=== PATIENT | female | born 1975 | race African-American/Black ===

== ENCOUNTER 2018-06-22 10:20 | Inpatient (IN) ==
[2018-06-22] MEDS ORDERED: PHENOBARBITAL IV PRN (18:03)
[2018-06-22] MEDS ORDERED: LIBRIUM PO PRN (18:03)
[2018-06-22] MEDS ORDERED: SINEMET 25/100 PO PRN (18:03)
[2018-06-22] MEDS ORDERED: MOTRIN PO PRN (18:03)
[2018-06-22] MEDS ORDERED: BENTYL PO PRN (18:03)
[2018-06-22] MEDS ORDERED: ZOFRAN IV PRN (18:03)
[2018-06-22] MEDS ORDERED: DESYREL PO PRN (18:03)
[2018-06-22] MEDS ORDERED: IMODIUM PO PRN (18:03)
[2018-06-22] MEDS ORDERED: D5W 1,000 ML IV PRN (18:03)
[2018-06-22] MEDS ORDERED: TUBERSOL ID ONE (18:03)
[2018-06-22] MEDS ORDERED: SENOKOT PO PRN (18:03)
[2018-06-22] MEDS ORDERED: DULCOLAX PR PRN (18:03)
[2018-06-22] MEDS ORDERED: MAALOX PLUS LIQUID PO PRN (18:03)
[2018-06-22] MEDS ORDERED: ZOFRAN ODT PO PRN (18:03)
[2018-06-22] MEDS ORDERED: TYLENOL PO PRN (18:03)
[2018-06-22] MEDS ORDERED: ZANAFLEX PO PRN (18:05)
[2018-06-22 18:32] LABS: URINE SOURCE VOIDED
[2018-06-22] MEDS: SUBOXONE 2 MG/0.5 MG FILM SL SCH (18:38)
[2018-06-22 18:50] LABS: UR AMPHETAMINES QUAL NONE DETECTED (NONE DETECT); UR BARBITUATES QUAL NONE DETECTED (NONE DETECT); UR BENZODIAZEPIN QUAL NONE DETECTED (NONE DETECT); UR CANNABINOIDS QUAL PRESUMPTIVE POSITIVE (NONE DETECT); UR COCAINE QUAL PRESUMPTIVE POSITIVE (NONE DETECT); UR METHADONE QUAL NONE DETECTED (NONE DETECT); UR METHAMPHETAMINE QUAL NONE DETECTED (NONE DETECT); UR OPIATES QUAL PRESUMPTIVE POSITIVE (NONE DETECT); UR OXYCODONE QUAL NONE DETECTED (NONE DETECT); UR PCP QUAL NONE DETECTED (NONE DETECT); UR PROPOXYPHENE QUAL NONE DETECTED (NONE DETECT); UR TCA QUAL NONE DETECTED (NONE DETECT)
[2018-06-22 18:53] LABS: BILIRUBIN URINE NEGATIVE (NEGATIVE); BLOOD URINE NEGATIVE (NEGATIVE); CLARITY CLEAR (CLEAR); COLOR YELLOW; GLUCOSE URINE NEGATIVE (NEGATIVE); KETONE URINE NEGATIVE (NEGATIVE); LEUKOCYTES URINE NEGATIVE (NEGATIVE); NITRITE URINE NEGATIVE (NEGATIVE); PROTEIN URINE NEGATIVE (NEGATIVE); UROBILINOGEN URINE NORMAL
[2018-06-22 19:06] LABS: HEMATOCRIT 34.8 % (37.0-47.0); MCH 29.6 PG (27-31); MCHC 31.6 g/dL (33-37); MCV 93.5 FL (81-99); MPV 10.5 FL (7.4-10.4); RBC 3.72 XMIL (4.2-5.4); RDW 15.8 % (11.5-14.5); WBC 7.01 X1000 (4.8-10.8)
[2018-06-22 19:28] LABS: AGAP 12; ALBUMIN 3.4 g/dL (3.5-5.0); ALKALINE PHOSPHATASE 77 U/L (32-104); BUN 18 mg/dL (8-22); CALCIUM 8.8 mg/dL (8.8-10.2); CHLORIDE 104 mmol/L (98-107); COSMO 281; CREATININE 0.9 mg/dL (0.5-0.9); ESTIMATED GFR > 60; GLUCOSE 94 mg/dL (70-104); GOT 30 U/L (10-30); GPT 33 U/L (10-36); POTASSIUM 4.1 mmol/L (3.5-5.1); SODIUM 140 mmol/L (136-145); TCO2 24 mmol/L (25-35); TOTAL BILIRUBIN < 0.15 mg/dL (0.20-1.00); TOTAL PROTEIN 6.4 g/dL (6.3-8.3)
[2018-06-22 19:36] LABS: AMYLASE 51 U/L (20-200); LIPASE 28 U/L (13-60)
[2018-06-22 19:39] LABS: INR 0.96; PROTIME 13.3 Seconds (11.0-16.0)
[2018-06-22] MEDS: NICODERM PATCH TD PRN (19:39)
[2018-06-22] MEDS: PEPCID PO SCH (21:04)
[2018-06-22] MEDS: LOPRESSOR PO SCH (21:49)
[2018-06-23] MEDS: SEROQUEL PO PRN ×2 (01:14→21:59)
[2018-06-23] MEDS: PROTONIX PO SCH (06:21)
[2018-06-23] MEDS: SUBOXONE 2 MG/0.5 MG FILM SL SCH ×3 (06:21→19:08)
[2018-06-23] MEDS ORDERED: PRINZIDE 20/12.5MG PO SCH (09:00)
[2018-06-23] MEDS: ASPIRIN PO SCH (12:15)
[2018-06-23] MEDS: FOLIC ACID PO SCH (12:16)
[2018-06-23] MEDS: HYDROCHLOROTHIAZIDE PO SCH (12:16)
[2018-06-23] MEDS: PEPCID PO SCH ×2 (12:19→21:54)
[2018-06-23] MEDS: PRINIVIL PO SCH (12:19)
[2018-06-23] MEDS: SINGULAIR PO SCH (12:19)
[2018-06-23] MEDS: THERA M PLUS PO SCH (12:35)
[2018-06-23] MEDS: BUSPAR PO SCH ×4 (12:35→17:11)
[2018-06-23] MEDS: VITAMIN B-1 PO SCH (12:35)
[2018-06-23] MEDS: LEXAPRO PO SCH (12:36)
[2018-06-23] MEDS: LOPRESSOR PO SCH (21:54)
[2018-06-23] MEDS: ATARAX PO PRN (22:00)
[2018-06-23] MEDS: ROBAXIN PO PRN (22:00)
[2018-06-23] MEDS: NICODERM PATCH TD PRN (22:00)
[2018-06-24] MEDS: PROTONIX PO SCH (06:03)
[2018-06-24] MEDS: SUBOXONE 2 MG/0.5 MG FILM SL SCH (06:07)
[2018-06-24] MEDS: BUSPAR PO SCH ×4 (10:00→19:04)
[2018-06-24] MEDS: THERA M PLUS PO SCH (12:01)
[2018-06-24] MEDS: FOLIC ACID PO SCH (12:02)
[2018-06-24] MEDS ORDERED: NICOTINE GUM BUCCAL PRN (12:15)
[2018-06-24] MEDS: NICODERM PATCH TD PRN (12:29)
[2018-06-24] MEDS: ROBAXIN PO PRN ×2 (12:29→20:24)
[2018-06-24] MEDS: HYDROCHLOROTHIAZIDE PO SCH (18:26)
[2018-06-24] MEDS: ASPIRIN PO SCH (18:26)
[2018-06-24] MEDS: LEXAPRO PO SCH (18:26)
[2018-06-24] MEDS: VITAMIN B-1 PO SCH (18:26)
[2018-06-24] MEDS: SINGULAIR PO SCH (18:27)
[2018-06-24] MEDS: PEPCID PO SCH ×2 (18:27→20:25)
[2018-06-24] MEDS: PRINIVIL PO SCH (18:27)
[2018-06-24] MEDS: SUBOXONE 8 MG/2 MG FILM SL SCH (19:04)
[2018-06-24] MEDS: LOPRESSOR PO SCH (20:25)
[2018-06-25] MEDS: SEROQUEL PO PRN
[2018-06-25] MEDS: ATARAX PO PRN
--- NOTE | 2018-06-25 01:11 | PROGRESS NOTE ---
DATE: 06/23/2018 SUBJECTIVE: Patient seen and examined by myself on the . Currently she states that she is feeling terrible, did not sleep last night. Still having muscle aches. She does not think she is going to be able to eat this morning. PHYSICAL EXAMINATION: Vital Signs: Reviewed. Temperature 97.3 degrees, pulse 60, respiratory 20, BP 120/67. General: Patient is in no current respiratory distress. She is pleasant to talk with. HEENT: Normocephalic. Neck: Supple. CARDIOVASCULAR: Regular rate. No murmurs. Chest: Clear and nonlabored. Abdomen: Soft. Extremities: Moves all extremities. Neurologic: No changes. ASSESSMENT: 1. Nausea, vomiting. 2. Abdominal pain. 3. Myalgias. 4. Paresthesias. 5. Paroxysmal sweating. 6. Opiate abuse, withdrawal and stabilization. 7. History of breast cancer causing chronic pain. PLAN: We will continue patient in the hospital. Continue Suboxone 08/24. Continue counseling. We will increase if needed. Hopefully home within the next day or two. cc: Duke Nuñez MD
--- NOTE | 2018-06-25 01:27 | PROGRESS NOTE ---
DATE: 06/24/2018 SUBJECTIVE: Patient is in no distress. Still states that she does not feel well. Still having lots of muscle aches and paresthesias. Tremors, anxiety, agitation have improved. Irritability has improved. PHYSICAL EXAMINATION: Vital Signs: Reviewed. She is afebrile. Temperature 97.7 degrees, pulse 74, respiratory 20, BP 116/84. General: Patient is awake, currently in no distress. HEENT: Normocephalic, atraumatic. NACHO. Neck: Supple. No JVD. CARDIOVASCULAR: Regular rate. Chest: Clear. Abdomen: Soft. Extremities: Moves all extremities. Neurologic: No changes. ASSESSMENT: 1. Nausea and vomiting. 2. Abdominal pain. 3. Myalgias. 4. Paresthesias. 5. Paroxysmal sweating. 6. Chronic pain. 7. Opiate abuse and withdrawal. PLAN: We will continue patient in the hospital. We will increase Suboxone to 8/2. If she tolerates, hopefully she can discharge home tomorrow. We will continue counseling. Further orders as needed. cc: Duke Nuñez MD
[2018-06-25] MEDS: SUBOXONE 8 MG/2 MG FILM SL SCH (05:22)
[2018-06-25] MEDS ORDERED: PNEUMOVAX 23 IM ONE (06:06)
[2018-06-25] MEDS: PROTONIX PO SCH (06:25)
[2018-06-25] MEDS ORDERED: SEPTRA DS PO SCH (09:00)
--- NOTE | 2018-06-25 09:49 | Diag Imaging Result Doc PS360 ---
CHEST-2 VIEWS - 06/25/2018 INDICATION: hypoxia COMPARISON: None FINDINGS: The lungs are normally expanded and clear. Heart size and mediastinal contours are normal. No pneumothorax or pleural effusion. There is a calcified granuloma in the right midlung. IMPRESSION: Negative exam. Electronically signed by Tyler Agarwal 06/25/2018 9:47 AM
[2018-06-25] MEDS: BUSPAR PO SCH (10:02)
[2018-06-25] MEDS: VITAMIN B-1 PO SCH (10:03)
[2018-06-25] MEDS: LEXAPRO PO SCH (10:03)
[2018-06-25] MEDS: THERA M PLUS PO SCH (10:03)
[2018-06-25] MEDS: PRINIVIL PO SCH (10:03)
[2018-06-25] MEDS: FOLIC ACID PO SCH (10:03)
[2018-06-25] MEDS: ASPIRIN PO SCH (10:03)
[2018-06-25] MEDS: HYDROCHLOROTHIAZIDE PO SCH (10:03)
[2018-06-25] MEDS: SINGULAIR PO SCH (10:04)
[2018-06-25 12:08] VITALS: BP 125/88
--- NOTE | 2018-06-26 16:08 | HISTORY AND PHYSICAL ---
CHIEF COMPLAINT: Nausea, vomiting. HISTORY OF PRESENT ILLNESS: The patient is a 43-year-old female who presented to [facility] secondary to nausea, vomiting, abdominal pain, myalgias, chronic pain and chronic opiate abuse. She is a very pleasant 43-year-old female who has a known history of breast cancer which I believe is where she started with taking pain medications. She notes that the medication use is become out of control and she is unable to stop. SOCIAL HISTORY: Patient is single, she is unemployed. She lives at home in [place]. PAST MEDICAL HISTORY: Diagnosed with breast cancer and had left mastectomy in 2017. She has chronic back pain from an injury, she has had a partial hysterectomy as well as frequent bladder problems. She has chronic anxiety, depression, history of hypertension. MEDICATIONS: Lexapro 30, BuSpar 10, Atarax 25 as needed, lisinopril hydrochlorothiazide 20/12.5, metoprolol 25, famotidine 20 twice a day, anastrozole 1 mg daily and vitamin D. ALLERGIES: Penicillin. REVIEW OF SYSTEMS: Her CINA score is 14 secondary to nausea, vomiting, myalgias, frequent temperature changes, paroxysmal sweating, frequent changes in temperature with frequent chills, she has headaches, abdominal pain, frequent episodes of diarrhea. Denies any dysuria, frequency, urgency, denies hesitancy, polyuria or polydipsia, denies any skin rashes. Denies constipation, melena, hematochezia, denies any bladder issues. Denies chest pain, palpitations. FAMILY HISTORY: Noncontributory. SUBSTANCE ABUSE HISTORY: Patient was in [place], [place] treatment for crack cocaine in 2010. She started drinking alcohol at age 8 currently does not drink every day but still drinks 3-4 times a week. She started marijuana at age 8 currently uses 2 to 3 times a week. Started crack cocaine at age 18 currently uses 3 to 4 times a week. Started opioids age 36 currently she is taking at least 5 to 7 [place] 10s a day. Started smoking at age 8 currently smokes a pack a day. OBJECTIVE: Vital Signs: Reviewed and stable, she is awake, alert, oriented. She is in no current respiratory distress. She is very pleasant to talk with, she is jittery nervous, anxious constantly moving about however. HEENT: Normocephalic, atraumatic NACHO. Neck: Supple. No JVD. CV: Regular rate, no murmurs. Chest: Clear, nonlabored. Abdomen: Soft, nontender . Extremities: Moves all extremities. Skin: Warm, dry, no rash. ASSESSMENT: 1. Nausea, vomiting. 2. Abdominal pain. 3. Myalgias. 4. Paresthesias. 5. Paroxysmal sweating. 6. Chronic pain. 7. Chronic polysubstance use and abuse. 8. Chronic alcoholism. 9. Chronic tobacco abuse. 10. Opiate abuse withdrawal and admit for stabilization. PLAN: We will continue patient in the hospital, place on Suboxone, begin counseling. I discussed with patient the importance of stopping smoking as well as changing her lifestyle. Further orders as needed. cc: Duke Nuñez MD
--- NOTE | 2018-06-27 10:37 | DISCHARGE SUMMARY ---
ADMISSION DATE: 06/22/2018 DISCHARGE DATE: 06/25/2018 DISCHARGE DIAGNOSES: 1. Nausea, vomiting. 2. Abdominal pain. 3. Myalgias. 4. Chronic pain. 5. Chronic opiate abuse, withdrawal and stabilization. 6. Chronic tobacco abuse. 7. Chronic polysubstance abuse. CONSULTATIONS: None. PROCEDURES: None. BRIEF HOSPITAL COURSE: Patient is a 43-year-old female, who presented to [facility] program secondary to nausea, vomiting, abdominal pain, tremors, and myalgias. She was admitted through the usual fashion, placed on Suboxone. We attempted to wean her dose, and this was not successful. We did increase to 8/2, and she notes that her withdrawal symptoms pretty much improved. DISPOSITION: Thankfully, she had an uneventful hospital course. We will discharge her home. Counseling was performed each day by myself. Discussed with patient that she needs to follow up outpatient with treatment facility of choice. She needs to avoid all persons, places, situations in which she has been using and abusing in the past. She needs outpatient life counseling, as well as drug counseling. DISPOSITION: Greater than 30 minutes was spent in total care. cc: Duke Nuñez MD
== END 2018-06-25 12:18 | disposition home or self-care (01) | DRG 897 ==
LOC: P.DIRADM 12:38 → P.MEDSURG 13:24
PROVIDERS: ADMIT Family Medicine; ATTEND Family Medicine
CPT/HCPCS: 71020; 71046; 80053; 80104; 80301; 80305; 80307; 80320; 82055; 82150; 83690; 84703; 85027; 85610; A9270; G0431; G0434; G0477; G0480; G6040